=== PATIENT | female | born 1960 | race Two or more races ===

== ENCOUNTER 2016-11-29 13:22 | Day surgery (SDC) | payer BC ==
[~2016-11-29] VITALS: Ht 157.5 cm; Wt 66.0 kg
[2016-11-29 13:58] VITALS: Ht 157.5 cm; Wt 66.0 kg
[2016-11-29 14:38] VITALS: BP 101/69; PULSE 60; RESP 18
--- NOTE | 2016-11-29 15:34 | OPPN ---
Date/Time of Note Date/Time of Note DATE: 11/29/16 TIME: 15:32 Operative Report Free Text/Dictation Normal colonoscopy A copy of this report to Dr. Arenas Repeat colonoscopy in 10 years Preoperative Diagnosis Screening colonoscopy Postoperative Diagnosis Normal colonoscopy Operation/Procedure Performed Screening colonoscopy Provider: COCO PACK MD Anesthesia Type: moderate sedation (Versed 4 mg/fentanyl 100 mcg/total. For moderate sedation 29 minutes) Estimated blood loss: none Transfusion Required: no Specimen: none Grafts/Implants: none Complications: no COCO PACK MD Nov 29, 2016 15:34
[2016-11-29] MEDS ORDERED: FENTAnyl 50 MCG/ML VIAL ONE (15:38)
[2016-11-29] MEDS ORDERED: MIDAZOLAM 1 MG/ML 2 ML INJ ONE ×2 (15:39)
[2016-11-29 16:08] VITALS: BP 97/68; PULSE 62; RESP 14
--- NOTE | 2016-11-29 19:42 | GILP ---
DATE OF PROCEDURE: 11/29/2016 PREOPERATIVE DIAGNOSIS: Screening colonoscopy. POSTOPERATIVE DIAGNOSIS: Essentially normal colon. DESCRIPTION OF PROCEDURE: Patient was put in left lateral decubitus after obtaining informed consent, was sedated, monitored with oximetry, EKG, blood pressure. She was sedated totally with 4 mg IV Versed and 100 mcg of fentanyl in small doses throughout the procedure. An Olympus video pediatric colonoscope advanced all the way to the cecum. Ileocecal valve, appendiceal opening identified. The prep was very clean. Examination of the cecum, ascending colon, transverse colon, descending colon, sigmoid colon, normal. Rectum, including retroflexion, normal. Upon removal of the scope, patient had no complication. This study is normal. Recommend yearly occult blood and follow in your office. In 10 years will repeat the colonoscopy. Dictated By: Kolton Byrnes MD /[email or web address] /Document#: [id number]
== END 2016-11-29 18:54 | disposition home or self-care (01) ==
LOC: GIL 13:22
PROVIDERS: ATTEND Internal Medicine
DX: Z12.11 Encounter for screening for malignant neoplasm of colon (principal)
CPT/HCPCS: 45378; J2250; J3010; Z7610

== ENCOUNTER 2017-08-27 17:04 | Emergency (ER) | END 2017-08-27 20:58 | disposition home or self-care (01) ==